=== PATIENT | female | born 1950 | race Two or more races ===

== ENCOUNTER → 2016-12-30 | Outpatient (CLI) | payer OTHER | LOC: BMCIMAGING 09:26 | DX: Z12.31 Encounter for screening mammogram for malignant neoplasm of breast (principal) | CPT/HCPCS: G0202 ==

== ENCOUNTER → 2017-02-09 | Outpatient (CLI) | payer OTHER | LOC: BMCIMAGING 10:15 | PROVIDERS: ATTEND Internal Medicine | DX: Z13.820 Encounter for screening for osteoporosis (principal); M85.80 Other specified disorders of bone density and structure, unspecified site ==

== ENCOUNTER 2017-09-24 20:59 | Observation (INO) | payer OTHER ==
--- NOTE | 2017-09-24 21:11 | CPEKG ---
Heart Rate: 88 RR Interval: 682 P-R Interval: 172 QRSD Interval: 80 QT Interval: 360 QTC Interval: 436 P Liberty: 54 QRS Liberty: 4 T Wave Liberty: 50 EKG Severity - BORDERLINE ECG - EKG Impression: SINUS RHYTHM EKG Impression: CONSIDER ANTERIOR INFARCT Electronically Signed By: Nabil Chavez 25-Sep-2017 06:37:56
[2017-09-24 21:33] LABS: PLATELET COUNT 167 10^3/uL (150-400)
[2017-09-24] MEDS ORDERED: MAG HYDROX/AL HYDROX/SIMETH 30 ML UDCUP PO ONE (21:49)
--- NOTE | 2017-09-24 21:53 | EDPHY ---
H & P Stated Complaint: Midsternium pain, radiates to right jaw - Personal History Current Tetanus Diphtheria and Acellular Pertussis (TDAP): Yes Tetanus Vaccine Date: <10 - Medical/Surgical History Hx Asthma: No Hx Chronic Respiratory Disease: No Hx Diabetes: No Hx Cardiac Disease: No Hx Renal Disease: No Hx Cirrhosis: No Hx Alcoholism: No Hx HIV/AIDS: No Hx Splenectomy or Spleen Trauma: No Other PMH: kidney stones, bilat hip replacements, tonsils, C sections x 2. Arthroscopic knee surgery x2 - Social History Smoking Status: Never smoked Time Seen by Provider: 09/24/17 21:11 Constitutional: Initial Vital Signs Temperature (C) 36.7 C 09/24/17 21:06 Heart Rate 92 09/24/17 21:06 Respiratory Rate 20 09/24/17 21:06 Blood Pressure 186/95 H 09/24/17 21:06 O2 Sat (%) 96 09/24/17 21:06 O2 Delivery Mode Room Air Allergies/Adverse Reactions: erythromycin base [Erythromycin Base] Allergy (Severe, Verified 09/24/17 21:02) aspirin [Aspirin] Allergy (Unknown, Verified 09/24/17 21:02) codeine [Codeine] Allergy (Unknown, Verified 09/24/17 21:02) iodine Allergy (Unknown, Verified 09/24/17 21:02) morphine [Morphine] Allergy (Unknown, Verified 09/24/17 21:02) Penicillins Allergy (Unknown, Verified 09/24/17 21:02) Sulfa (Sulfonamide Antibiotics) Allergy (Unknown, Verified 09/24/17 21:02) NSAIDS Allergy (Unknown, Uncoded 09/17/16 19:47) Home Medications: Medication Instructions Recorded Aspirin [Aspirin 81mg (*)] 40.5 mg PO DAILY PRN 09/25/17 Herbals/Supplements -Info Only 1 ea PO DAILY 09/25/17 Medical Decision Making - Diagnostics Imaging: I viewed and interpreted images myself ED Course/Re-evaluation: CHIEF COMPLAINT: Chest pain HISTORY OF PRESENT ILLNESS: The patient is a 67 y/o female arriving with her complaining of sudden onset, intermittent midsternal chest pain radiating to her back that began this evening while sitting after dinner. She initially describes her pain as "heartburn," but denies associated belching, bad taste in her mouth, or burning sensation extending vertically along her esophagus. She ate sauerkraut at dinner. She tells me she returned from [place] at the beginning of August with a viral illness. Her cough and fever resolved , but over the past few weeks she began to notice intermittent exertional dyspnea and tachycardia going up stairs and walking on the treadmill that improve with rest. Two weeks ago she woke in the middle of the night with the same chest pain and it resolved spontaneously. When her pain is present, she describes chest pain that is "sucker punching me in the back." She had a Holter monitor study in the last year and a nuclear study over 5 years ago. She has no personal or family history of cardiac disease. No hyperlipidemia, hypertension, diabetes. REVIEW OF SYSTEMS: A 10 point review of systems was performed and is negative with the exception of the elements mentioned in the history of present illness. PHYSICAL EXAM: HR, BP, O2 Sat, RR. Temp noted General Appearance: Alert, well hydrated, appropriate, and non-toxic appearing. Head: Atraumatic without scalp tenderness or obvious injury Eyes: Pupils equal, round, reactive to light and accommodation, EOMI, no trauma , no injection. Nose: Atraumatic, no rhinorrhea, clear. Throat: Mucus membranes moist. Neck: Supple, non-tender, no lymphadenopathy. Respiratory: No retractions, no distress, no wheezes, and no accessory muscle use. Lungs are clear to auscultation bilaterally. Chest: Tenderness at sternal notch. Cardiovascular: Regular rate and rhythm, no murmurs, rubs, or gallops. Good capillary refill all extremities. Gastrointestinal: Abdomen is soft, non-tender, non-distended, no masses, no rebound, no guarding, no peritoneal signs. Musculoskeletal: Normal active ROM of all extremities, atraumatic. Neurological: Alert, appropriate, and interactive. The patient has non-focal cranial nerves, motor, sensory, and cerebellar exam. Skin: No rashes, good turgor, no nodules on palpation. 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 Nonsmoker. No alcohol use. PCP: Dr. Flores. Sample Sewer: was Dr. Anthony. DIAGNOSTICS/PROCEDURES/CRITICAL CARE TIME: The 12 lead EKG was interpreted by myself. Sinus mechanism. See hard copy and/ or "tracemaster" electronic copy for interpretation. DIFFERENTIAL DIAGNOSIS: The differential diagnosis for the patient's chest pain included but was not limited to GERD, esophageal spasm, myocardial ischemia, pulmonary embolus, chest wall pain, pleural inflammation, and pulmonary infectious causes. MEDICAL DECISION MAKING: This is a 67 y/o female who presents with a few-hour history of "midsternal" chest pain and a few week history of exertional dyspnea. Her pain is reproducible on palpation around her sternal notch. Her exam is otherwise normal. Plan for IV, labs, EKG, and symptomatic management. I offered multiple treatment options for her symptoms including GI cocktail, Mylanta, fluids, albuterol inhaler for shortness of breath. She refused every option and asked for her IV to be removed. We will run the labs we already have. EKG shows sinus mechanism. Patient is now requesting Maalox. I've ordered this for her. Troponin negative, which is likely sensitive due to several weeks of symptoms. D -dimer elevated at 0.63. Reassessed patient and discussed indication for chest CTA including exertional dyspnea following flight from [place]. She agrees to imaging. Her pain continues to be intermittent and relatively unchanged after Maalox. Chest x-ray cancelled. Patient will be signed out to Dr. Chavez pending CTA results. (Jose A Pruitt) CT scan angiogram of the chest shows no pulmonary embolism. No pneumonia. There is scarring in the lingula. Otherwise no evidence of aortic dissection and pulmonary embolism or large cardiac effusion. This was called to me by Dr. Kulkarni. 2320: Spent extensive time discussed results with this patient. Went over CT results, EKG, blood work and troponin. Given that I do not have an explanation for her tachycardia, dyspnea on exertion and chest discomfort with jaw discomfort I recommend that she stays in the hospital overnight for further serial enzymes serial EKGs and cardiac evaluation and rule out. She is agreeable for this plan. I spent a great deal of time with her about this. I will consult the hospitalist for admission for further cardiac evaluation. Her only risk factor is her age. She does not smoke she is not obese. She does report to me she had a stress test treadmill approximately 6 years ago that was normal. (Nabil Chavez) - Data Points Laboratory Results: Laboratory Results 09/24/17 21:10 09/24/17 21:10 Medications Given: Discontinued Medications Al Hydroxide/Mg Hydroxide (Maalox Susp) 30 ml PO ONCE ONE Stop: 09/24/17 21:50 Last Admin: 09/24/17 21:53 Dose: 30 ml Diphenhydramine HCl (Benadryl Injection) 6.25 mg IVP EDNOW ONE Stop: 09/24/17 22:37 Last Admin: 09/24/17 22:41 Dose: 6.25 mg Enoxaparin Sodium (Lovenox) 40 mg SC DAILY BLADIMIR Stop: 03/24/18 08:59 Last Admin: 09/25/17 08:12 Dose: Not Given Departure - Departure Disposition: [facility] Inpatient Acute Clinical Impression: Exertional dyspnea Chest pain Qualifiers: Chest pain type: other chest pain Qualified Code(s): R07.89 - Other chest pain Condition: Good Report Scribed for: Jose A Pruitt Report Scribed by: Zara Rose Date of Report: 09/24/17 Time of Report: 21:53
[2017-09-24] MEDS ORDERED: IOPAMIDOL (ISOVUE 370) 100 ML BTL IV ONE (22:46)
[2017-09-24] MEDS ORDERED: ONDANSETRON DISINTEGRATING 4 MG TAB PO PRN (23:27)
[2017-09-24] MEDS ORDERED: ONDANSETRON 4 MG/2 ML VIAL IVP PRN (23:27)
[2017-09-24] MEDS ORDERED: ACETAMINOPHEN 325 MG TAB PO PRN (23:27)
--- NOTE | 2017-09-25 00:36 | PDGENHP ---
History and Physical - Chief Complaint Chest pain - History of Present Illness 67 yo F w/ no significant PMHx presents with MOSLEY and chest pain. Patient explains that she had a viral URI in July. Since returning from her trip to [place] she continued to experience cough (now resolved) and mild dyspnea on exertion. Her MOSLEY has persisted, which she finds very distressin. Then, on the night of admission, patient had an episode of severe, central chest discomfort with radiation to the back and R jaw. She has never had similar symptoms. Her pain abated after arrival to the ED with aid of a GI cocktail. She states that she is usually in excellent health and exercises regularly. In the ED work-up thus far has been relatively unremarkable including a normal CTA chest. She is being admitted for chest pain rule out and risk stratification. History Information - Allergies/Home Medication List Allergies/Adverse Reactions: erythromycin base [Erythromycin Base] Allergy (Severe, Verified 09/24/17 21:02) aspirin [Aspirin] Allergy (Unknown, Verified 09/24/17 21:02) codeine [Codeine] Allergy (Unknown, Verified 09/24/17 21:02) iodine Allergy (Unknown, Verified 09/24/17 21:02) morphine [Morphine] Allergy (Unknown, Verified 09/24/17 21:02) Penicillins Allergy (Unknown, Verified 09/24/17 21:02) Sulfa (Sulfonamide Antibiotics) Allergy (Unknown, Verified 09/24/17 21:02) NSAIDS Allergy (Unknown, Uncoded 09/17/16 19:47) Home Medications: NK [No Known Home Meds] 04/05/16 [Last Taken Unknown] I have personally reviewed and updated: family history, medical history - Past Medical History no pertinent PMH - Surgical History Reports: no pertinent surgical hx - Family History Positive for: cancer, CAD - Social History Smoking Status: Never smoked Review of Systems Review of Systems: ROS: 10pt was reviewed & negative except for what was stated in HPI & below Physical Exam Physical Exam: Temp Pulse Resp BP Pulse Ox 36.7 C 67 20 146/82 H 96 09/24/17 21:06 09/25/17 00:08 09/25/17 00:08 09/25/17 00:08 09/25/17 00:08 Constitutional: no apparent distress, not in pain Eyes: PERRL, EOMI Ears, Nose, Mouth, Throat: moist mucous membranes, no oral mucosal ulcers Cardiovascular: regular rate and rhythym, no murmur, rub, or gallop Respiratory: no respiratory distress, clear to auscultation Gastrointestinal: normoactive bowel sounds, soft, non-tender abdomen Skin: warm, normal color Musculoskeletal: full muscle strength, no muscle tenderness Neurologic: AAOx3, CN II-XII Intact Psychiatric: interacting appropriately, not anxious Lab Data & Imaging Review 09/24/17 21:10 09/24/17 21:10 WBC 7.03 10^3/uL (3.80-9.50) 09/24/17 21:10 RBC 4.50 10^6/uL (4.18-5.33) 09/24/17 21:10 Hgb 13.9 g/dL (12.6-16.3) 09/24/17 21:10 Hct 41.2 % (38.0-47.0) 09/24/17 21:10 MCV 91.6 fL (81.5-99.8) 09/24/17 21:10 MCH 30.9 pg (27.9-34.1) 09/24/17 21:10 MCHC 33.7 g/dL (32.4-36.7) 09/24/17 21:10 RDW 13.0 % (11.5-15.2) 09/24/17 21:10 Plt Count 167 10^3/uL (150-400) 09/24/17 21:10 MPV 10.7 fL (8.7-11.7) 09/24/17 21:10 Neut % (Auto) 45.5 % (39.3-74.2) 09/24/17 21:10 Lymph % (Auto) 44.0 % (15.0-45.0) 09/24/17 21:10 Dickey % (Auto) 8.7 % (4.5-13.0) 09/24/17 21:10 Eos % (Auto) 1.6 % (0.6-7.6) 09/24/17 21:10 Baso % (Auto) 0.1 % (0.3-1.7) L 09/24/17 21:10 Nucleat RBC Rel Count 0.0 % (0.0-0.2) 09/24/17 21:10 Absolute Neuts (auto) 3.20 10^3/uL (1.70-6.50) 09/24/17 21:10 Absolute Lymphs (auto) 3.09 10^3/uL (1.00-3.00) H 09/24/17 21:10 Absolute Monos (auto) 0.61 10^3/uL (0.30-0.80) 09/24/17 21:10 Absolute Eos (auto) 0.11 10^3/uL (0.03-0.40) 09/24/17 21:10 Absolute Basos (auto) 0.01 10^3/uL (0.02-0.10) L 09/24/17 21:10 Absolute Nucleated RBC 0.00 10^3/uL (0-0.01) 09/24/17 21:10 Immature Gran % 0.1 % (0.0-1.1) 09/24/17 21:10 Immature Gran # 0.01 10^3/uL (0.00-0.10) 09/24/17 21:10 D-Dimer 0.63 ug/mLFEU (0.00-0.50) H 09/24/17 21:10 Sodium 144 mEq/L (134-144) 09/24/17 21:10 Potassium 3.7 mEq/L (3.5-5.2) 09/24/17 21:10 Chloride 101 mEq/L (97-110) 09/24/17 21:10 Carbon Dioxide 28 mEq/l (22-31) 09/24/17 21:10 Anion Gap 15 mEq/L (8-16) 09/24/17 21:10 BUN 19 mg/dL (7-23) 09/24/17 21:10 Creatinine 0.8 mg/dL (0.6-1.0) 09/24/17 21:10 Estimated GFR > 60 09/24/17 21:10 Glucose 107 mg/dL (70-100) H 09/24/17 21:10 Calcium 9.9 mg/dL (8.5-10.4) 09/24/17 21:10 Troponin I < 0.012 ng/mL (0.000-0.034) 09/24/17 21:10 NT-Pro-B Natriuret Pep 58 pg/mL (0-125) 09/24/17 21:10 Imaging Review: Imaging Impressions Chest/Thorax CTA 09/24/17 22:17 Impression: 1. No evidence of thrombopulmonary embolic disease. 2. Mild diskoid atelectasis or scarring right middle lobe and lingula. Results called and discussed with Dr. Nabil Chavez at 09/24/2017 23:13. Visualized and Interpreted EKG results: Yes EKG Interpretation: Positive for: normal sinsus rhythm Assessment & Plan Assessment: 67 yo F w/ no significant PMHx presents with sub-acute MOSLEY and episode of chest pain on night admission. Plan: 1. Chest pain - Described as central, severe, with radiation to R jaw. Objective data in the ED negative for acute ischemia with negative ECG and troponin. Noting pain was relieved with GI cocktail, most likely GI etiology. However, noting age, patient concern, and ongoing MOSLEY, reasonable to perform inpatient risk stratification. - Admit for observation to PCU - Monitor on telemetry, trend cardiac enzymes - Treadmill stress test ordered 2. MOSLEY - I suspect this is related to viral bronchitis that patient is now recovering from. However, will evaluate for cardiac etiologies as above. I do not feel a TTE is necessary at this point noting normal VS, normal heart size, and euvolemic physical exam. Diet - NPO for cardiac risk stratification Code - Full Ppx - LMWH Dispo - Admit to PCU under observation status
[2017-09-25 04:41] LABS: PLATELET COUNT 146 10^3/uL (150-400)
[2017-09-25 08:06] VITALS: BP 134/73; PULSE 66; RESP 16; TEMP 97.7; O2SAT 95
[2017-09-25] MEDS ORDERED: ENOXAPARIN 40 MG/0.4 ML SYR SC SCH (09:00)
--- NOTE | 2017-09-25 11:32 | CPR ---
[f rep st] NONINVASIVE CARDIAC PROCEDURE REPORT INDICATION: Atypical chest pain. PROCEDURE: The patient was prepared for an exercise EKG test. The patient's baseline blood pressure was 118/78, pulse of 72, normal sinus rhythm. The patient exercised for 10 minutes. Appropriate in crease in blood pressure and heart rate. Heart rate went up to 154 beats per minute, reaching the ma x heart rate. No ST changes were noted. No symptoms of chest pain noted. Occasional PVCs during ex ercise, which resolved quickly with recovery. CONCLUSION: Mcnair treadmill score of 10. Negative exercise EKG for ischemia. /[id number]/MODL
--- NOTE | 2017-09-25 12:53 | ASDISCHSUM ---
Discharge Information Plan Status:Home with No Needs Medically Cleared to Leave:09/24/2017 Discharge Date:09/25/2017 12:49 PM CM D/C Disposition:Home, Routine, Self-Care ADT D/C Disposition:Home, Routine, Self-Care Projected Discharge Date:09/25/2017 12:49 PM Transportation at D/C:Family Discharge Delay Reason: Follow-Up Date:09/25/2017 12:49 PM Discharge Slot:2 - 12:01 pm - 18:00 pm Final Diagnosis:Chest pain, dyspnea on exertion, exercise stress test negative Placement Information Patient Contact Information Contact Name:ANAI Relationship: Address:[address] Home Phone: City:[place] Alternate Phone: State/Zip Code:[place] [address] Email: Financial Information Financial Class:HMO and PPO Plans Primary Plan Desc:[facility] Primary Plan Number:[id number] Secondary Plan Desc: Secondary Plan Number: Assessment Information [facility] CM Progress Note CM Note CM Note Notes: Pt admitted for chest pain and dyspnea on exertion. Per MD notes, s/p negative exercise stress test. Pt to discharge home independently w/ family support and no identified needs. Pt to follow up as directed. No IM signed, admission <24 hrs and not applicable. CM avail for any further issues or concerns. Current Discharge Plan: Home independently Date Signed: 09/25/2017 12:53 PM Electronically Signed By:Lata Cardona RN Intervention Information
--- NOTE | 2017-09-25 15:23 | PDDCSUM ---
Discharge Summary Discharge Summary: DISCHARGE SUMMARY FOLLOW-UP ITEMS: Reassess any recurrence of GERD symptoms Reassess whether her pulmonary capacity has completely normalized DATE OF ADMISSION: 09/24/2017 DATE OF DISCHARGE: 09/25/2017 DISCHARGE DIAGNOSES: 1. Acute chest pain 2. Suspected GERD 3. Suspected post viral bronchitis 4. Atelectasis CONSULTATIONS: None PROCEDURES / IMAGING: Exercise stress test demonstrating no inducible ischemia, CT angiogram demonstrating no pulmonary embolism CHIEF COMPLAINT: Acute chest pain SUBJECTIVE: Patient is feeling well at time discharge, she is no longer having any acute chest pain, she does report some ongoing subjective reduced pulmonary capacity with exertion PHYSICAL EXAM ON DISCHARGE: Systolic blood pressure 120-160, heart rate 70, afebrile overnight, satting on room air, alert awake oriented x3, lungs are clear to auscultation bilaterally without any crackles wheezes, heart rhythm is regular with regular rate LABS ON DISCHARGE: D-dimer negative when adjusted for age, troponin negative x2, creatinine 0.7, potassium 3.9, white blood count 6800, hemoglobin 12.1 HOSPITAL COURSE BY PROBLEM: The patient presented with acute chest pain in the setting of recent subjective decline in pulmonary capacity with pulmonary discomfort on physical exertion. The patient was ruled out for acute coronary syndrome with negative troponin x2 , no ischemic changes on EKG. She was ruled out for obstructive coronary disease with a normal exercise EKG stress test. She was ruled out for pulmonary embolism with a normal CT angiogram. I suspect that the acute chest discomfort experienced by the patient precipitating this hospitalization was GERD, as the patient had recently eaten particularly spicy and caustic foods. I recommended that the patient have as needed Tums or Maalox at home if she experiences any recurrence of the symptoms, and that she avoid these types of foods in the future. The patient absolutely does not want to initiate an H2 ryanne or PPI, and I have recommend that she continue this conversation with her primary care provider. I believe that the patient's recent subjective reduction and pulmonary capacity is a separate and distinct process, most likely postviral bronchitis which has lingered approximately 6 weeks from with the patient experienced a likely URI. The patient demonstrates no red flag findings with normal oxygen saturations on room air, no substantial complications with an exercise stress test, and no evidence of focal airspace disease or pulmonary fibrosis on CT imaging. That being said, the patient does have some scarring in the right middle lobe as well as atelectasis, and these could be a findings associated with her past illness, as well as her reluctance to take deep breaths for fear of experiencing chest discomfort. I have advised the patient that she could take nonsteroidal anti-inflammatory medications to treat any element of ongoing pleuritis, but the patient is adamantly against taking NSAIDs. The patient would prefer to use naturopathic methods for anti- inflammatory intervention (tumeric), and that seems appropriate, given the patient's beliefs. It should also be noted that the patient does report good exercise tolerance at the present time, and I do not believe that she has any indication for immediate pulmonary function testing or echocardiogram. That being said, I also recommend the patient continue this conversation with her primary care provider and if her symptoms do not begin to resolve over the next couple weeks , that her primary care provider consider more advanced workup with these modalities. Although the patient does not want to bother her PCP with these concerns, I counseled the patient that that is the most appropriate setting to address these issues and it provides the best opportunity for continuity of care and an ongoing diagnostic work-up, rather than episodic evaluations by acute care providers. DISCHARGE MEDICATIONS: Please see official discharge medication reconciliation sheet in chart , continue home medications with the addition of as needed Maalox and Tums. DISCHARGE INSTRUCTIONS: Please follow up with primary care provider in the next couple weeks.
== END 2017-09-25 12:49 | disposition home or self-care (01) ==
LOC: F2W 09-25 00:41
PROVIDERS: ADMIT Student in an Organized Health Care Education/Training Program; ATTEND Internal Medicine
DX: R07.9 Chest pain, unspecified (principal); R06.09 Other forms of dyspnea; J98.11 Atelectasis; R00.0 Tachycardia, unspecified; Z87.442 Personal history of urinary calculi; Z82.49 Family history of ischemic heart disease and other diseases of the circulatory system; Z96.643 Presence of artificial hip joint, bilateral; Z88.0 Allergy status to penicillin; Z88.2 Allergy status to sulfonamides
CPT/HCPCS: 71275; 93005; 93017; G0378; 96374; J1200; Q9967

== ENCOUNTER 2017-10-23 12:48 | Emergency (ER) | payer OTHER ==
[2017-10-23 12:54] VITALS: TEMP 98.2
--- NOTE | 2017-10-23 13:19 | EDPHY ---
H & P Stated Complaint: allergic rxn since 1629 yesterday Time Seen by Provider: 10/23/17 12:57 HPI/ROS: Chief Complaint: Allergic reaction HPI: 67-year-old woman with a history of multiple allergies has been having hives for the last couple of days. Hives worsening yesterday. This morning she started having some discomfort in her throat. No real shortness of breath or wheezing. She took 12.5 mg of Benadryl today. Patient states that she only takes this does because she is very sensitive to medications. She states that her throat scratching his seems to be improving as do the hives on her abdomen and legs. No fevers or chills. No cough. No nausea or vomiting. No lightheadedness or fainting. She does state that she started using a new boil at home. The ROS: 10 point Review of Systems is negative except as noted in the HPI. PMH: Multiple allergies Social History: No smoking, no alcohol, no recreational drug use Family History: non-contributory Physical Exam: Gen: Awake, Alert, No Distress HEENT: Nose: no rhinorrhea Eyes: PERRLA, EOMI Mouth: Moist mucosa oropharynx is normal, no angioedema, Neck: Supple, no JVD, no masses, no stridor Chest: nontender, lungs clear to auscultation Heart: S1, S2 normal, no murmur Abd: Soft, non-tender, no guarding Back: no CVA tenderness, no midline tenderness Ext: no edema, non-tender Skin: Mild generalized urticaria on her abdomen is upper and lower extremities Neuro: CN II-XII intact, Sensation grossly intact, Strength 5/5 in bilateral upper and lower extremities - Personal History Tetanus Vaccine Date: <10 - Medical/Surgical History Hx Asthma: No Hx Chronic Respiratory Disease: No Hx Diabetes: No Hx Cardiac Disease: No Hx Renal Disease: No Hx Cirrhosis: No Hx Alcoholism: No Hx HIV/AIDS: No Hx Splenectomy or Spleen Trauma: No Other PMH: kidney stones, bilat hip replacements, tonsils, C sections x 2. Arthroscopic knee surgery x2 - Social History Smoking Status: Never smoked Constitutional: Initial Vital Signs Temperature (C) 36.8 C 10/23/17 12:50 Heart Rate 110 H 10/23/17 12:50 Respiratory Rate 16 10/23/17 12:50 Blood Pressure 166/107 H 10/23/17 12:50 O2 Sat (%) 94 10/23/17 12:50 O2 Delivery Mode Room Air Allergies/Adverse Reactions: erythromycin base [Erythromycin Base] Allergy (Severe, Verified 09/24/17 21:02) aspirin [Aspirin] Allergy (Unknown, Verified 09/24/17 21:02) codeine [Codeine] Allergy (Unknown, Verified 09/24/17 21:02) iodine Allergy (Unknown, Verified 09/24/17 21:02) morphine [Morphine] Allergy (Unknown, Verified 09/24/17 21:02) Penicillins Allergy (Unknown, Verified 09/24/17 21:02) Sulfa (Sulfonamide Antibiotics) Allergy (Unknown, Verified 09/24/17 21:02) NSAIDS Allergy (Unknown, Uncoded 09/17/16 19:47) Home Medications: Medication Instructions Recorded Aspirin [Aspirin 81mg (*)] 40.5 mg PO DAILY PRN 09/25/17 Herbals/Supplements -Info Only 1 ea PO DAILY 09/25/17 EPINEPHRINE [EPIPEN] 0.3 mg IM ONCE #2 syr 10/23/17 Medical Decision Making ED Course/Re-evaluation: Patient is improved after 12 and half of Benadryl. Rash is resolving. She states her throat is better. I had never noted any angioedema in her throat. She had no stridor. Her oxygen saturations were good. Her vital signs were good with a little bit of hypertension. She does not want taking steroids. She does not want any epinephrine. I will write her for an EpiPen if her symptoms should worsen. [facility] She will return for any concerns. - Data Points Medications Given: Discontinued Medications Diphenhydramine HCl (Benadryl Injection) 12.5 mg IVP EDNOW ONE Stop: 10/23/17 12:58 Last Admin: 10/23/17 13:01 Dose: 12.5 mg Departure - Departure Disposition: Home, Routine, Self-Care Clinical Impression: Allergic reaction Condition: Good Instructions: Allergies (ED) Additional Instructions: Take 12.5 mg of Benadryl every 4 hr for the next 48 hr. Follow up with primary care physician tomorrow and arrange for follow up with an bag liner. Return to the emergency depart for increasing shortness of breath, worsening rash, worsening itching, or any other concerns. Referrals: Edyta Flores MD [Primary Care Provider] - As per Instructions Prescriptions: EPINEPHRINE [EPIPEN] 0.3 mg IM ONCE #2 syr
[2017-10-23 14:29] VITALS: BP 122/76; PULSE 71; RESP 18; O2SAT 98
== END 2017-10-23 14:31 | disposition home or self-care (01) ==
DX: T78.40XA Allergy, unspecified, initial encounter (principal); Z79.82 Long term (current) use of aspirin
CPT/HCPCS: 96374; J1200

== ENCOUNTER 2017-10-24 05:29 | Emergency (ER) | payer OTHER ==
[2017-10-24 05:35] VITALS: O2SAT 98
[2017-10-24] MEDS ORDERED: FAMOTIDINE 20 MG TAB PO ONE (06:40)
--- NOTE | 2017-10-24 07:20 | EDPHY ---
H & P Stated Complaint: HIVES/SWELLING Time Seen by Provider: 10/24/17 05:57 HPI/ROS: HPI The patient presents with increased itchy rash which has been present for the last 2 days. It started slowly and has gotten progressively worse. She did have some sensations that her throat was closing earlier today. She was in the emergency department for this. She has been taking Benadryl 12.5 mg every 3 hr. She has declined prednisone and other treatments. However, she is concerned now that the rash has gotten worse. It is unclear what her reaction is 2 at this point. She is not on any new medications except for fish oil pills. She currently denies any vomiting, shortness of breath, wheezing. REVIEW OF SYSTEMS Constitutional: No fever, no chills. Eyes: No discharge. ENT: No sore throat. Cardiovascular: No chest pain, no palpitations. Respiratory: No cough, no shortness of breath. Gastrointestinal: No abdominal pain, no vomiting. Genitourinary: No hematuria. Musculoskeletal: No back pain. Skin: See HPI Neurological: No headache. PMHx: History of kidney stones Soc Hx: Lives at home with her PHYSICAL General Appearance: Alert, no distress Eyes: Pupils equal and round no pallor or injection ENT, Mouth: Mucous membranes moist, posterior pharynx is mildly edematous without any erythema, uvula is midline Respiratory: There are no retractions, lungs are clear to auscultation Cardiovascular: Regular rate and rhythm Gastrointestinal: Abdomen is soft and non-tender, no masses, bowel sounds normal Neurological: A&O, moves all extremities Skin: Warm and dry, urticarial rash throughout arms, legs, abdomen and back Musculoskeletal: Neck is supple non tender Extremities: symmetrical, full range of motion Psychiatric: Patient is oriented X 3, there is no agitation Source: Patient Exam Limitations: No limitations - Personal History Current Tetanus/Diphtheria Vaccine: Yes Tetanus Vaccine Date: <10 - Medical/Surgical History Hx Asthma: No Hx Chronic Respiratory Disease: No Hx Diabetes: No Hx Cardiac Disease: No Hx Renal Disease: No Hx Cirrhosis: No Hx Alcoholism: No Hx HIV/AIDS: No Hx Splenectomy or Spleen Trauma: No Other PMH: kidney stones, bilat hip replacements, tonsils, C sections x 2. Arthroscopic knee surgery x2 - Social History Smoking Status: Never smoked Constitutional: Initial Vital Signs Temperature (C) 37.1 C 10/24/17 05:33 Heart Rate 100 10/24/17 05:33 Respiratory Rate 18 10/24/17 05:33 Blood Pressure 134/97 H 10/24/17 05:33 O2 Sat (%) 98 10/24/17 05:33 O2 Delivery Mode Room Air Allergies/Adverse Reactions: erythromycin base [Erythromycin Base] Allergy (Severe, Verified 09/24/17 21:02) aspirin [Aspirin] Allergy (Unknown, Verified 09/24/17 21:02) codeine [Codeine] Allergy (Unknown, Verified 09/24/17 21:02) iodine Allergy (Unknown, Verified 09/24/17 21:02) morphine [Morphine] Allergy (Unknown, Verified 09/24/17 21:02) Penicillins Allergy (Unknown, Verified 09/24/17 21:02) Sulfa (Sulfonamide Antibiotics) Allergy (Unknown, Verified 09/24/17 21:02) NSAIDS Allergy (Unknown, Uncoded 09/17/16 19:47) Home Medications: Medication Instructions Recorded Aspirin [Aspirin 81mg (*)] 40.5 mg PO DAILY PRN 09/25/17 Herbals/Supplements -Info Only 1 ea PO DAILY 09/25/17 EPINEPHRINE [EPIPEN] 0.3 mg IM ONCE #2 syr 10/23/17 Famotidine [Pepcid 20 MG (*)] 20 mg PO BID #30 tab 10/24/17 predniSONE [Prednisone] 10 mg PO DAILY 4 Days tablet 10/24/17 Medical Decision Making Differential Diagnosis: 67-year-old female with diffuse urticaria, worse from when she was seen earlier today. She does not have any signs of anaphylaxis. The cause of her urticaria is unclear. She does complain of throat symptoms, however her posterior pharynx appears normal. She is taking Benadryl. She is somewhat concerned about medications and their side effects. She says she is particularly sensitive to medications. She agrees for Pepcid and low-dose prednisone for the next several days. I will give her follow-up with an ux visual designer. She has gotten a prescription for EpiPen already. - Data Points Medications Given: Discontinued Medications Famotidine (Pepcid) 20 mg PO EDNOW ONE Stop: 10/24/17 06:41 Last Admin: 10/24/17 06:48 Dose: 20 mg Departure - Departure Disposition: Home, Routine, Self-Care Clinical Impression: Urticaria Condition: Good Instructions: Urticaria (ED) Additional Instructions: Please return to the emergency room if your worse in any way. You should continue to take the Benadryl as your taking it. Referrals: Edyta Flores MD [Primary Care Provider] - As per Instructions Kathryn Ramirez MD [[facility] [place] - As per Instructions Prescriptions: Famotidine [Pepcid 20 MG (*)] 20 mg PO BID #30 tab predniSONE [Prednisone] 10 mg PO DAILY 4 Days tablet
[2017-10-24 07:26] VITALS: BP 121/84; PULSE 74; RESP 14; TEMP 97.9
== END 2017-10-24 07:28 | disposition home or self-care (01) ==
DX: L50.9 Urticaria, unspecified (principal); Z79.82 Long term (current) use of aspirin

== ENCOUNTER 2018-12-06 13:24 | Observation (INO) | payer OTHER ==
--- NOTE | 2018-12-06 14:49 | EDPHY ---
H & P Stated Complaint: SOB and irregular heart rate for 1 week, getting worse. Time Seen by Provider: 12/06/18 14:25 HPI/ROS: CHIEF COMPLAINT: Irregular heartbeat, shortness of breath HISTORY OF PRESENT ILLNESS: 68-year-old female presents with irregular heartbeat and shortness of breath. Onset of occasional irregular heartbeat 2 months ago. Over the last week, the irregularity has increased in frequency and now occurs every few seconds. Associated with a one-week history of exertional shortness of breath and chest pressure. The chest pressure is moderate and resolves with rest. Asymptomatic now. No prior history cardiopulmonary disease. REVIEW OF SYSTEMS: complete 10 point ROS reviewed and is negative except for the noted elements in the HPI - Personal History Current Tetanus Diphtheria and Acellular Pertussis (TDAP): Yes Tetanus Vaccine Date: <10 - Medical/Surgical History Hx Asthma: No Hx Chronic Respiratory Disease: No Hx Diabetes: No Hx Cardiac Disease: No Hx Renal Disease: No Hx Cirrhosis: No Hx Alcoholism: No Hx HIV/AIDS: No Hx Splenectomy or Spleen Trauma: No Other PMH: kidney stones, bilat hip replacements, tonsils, C sections x 2. Arthroscopic knee surgery x2 - Social History Smoking Status: Never smoked Alcohol Use: Sober Additional Social History: - Physical Exam Exam: General Appearance: Alert, pleasant Eyes: Pupils equal and round, no conjunctival pallor or injection ENT, Mouth: Mucous membranes moist Neck: Normal inspection Respiratory: Lungs are clear to auscultation Cardiovascular: Irregular rhythm Gastrointestinal: Abdomen is soft and nontender Neurological: A&O, nonfocal, normal gait Skin: Warm and dry Extremities: Normal inspection, no swelling Psychiatric: Anxious Constitutional: Initial Vital Signs Temperature (C) 37.2 C 12/06/18 13:26 Heart Rate 76 12/06/18 13:26 Respiratory Rate 18 12/06/18 13:26 Blood Pressure 178/91 H 12/06/18 13:26 O2 Sat (%) 96 12/06/18 13:26 O2 Delivery Mode Room Air Allergies/Adverse Reactions: erythromycin base [Erythromycin Base] Allergy (Severe, Verified 09/24/17 21:02) aspirin [Aspirin] Allergy (Unknown, Verified 09/24/17 21:02) codeine [Codeine] Allergy (Unknown, Verified 09/24/17 21:02) iodine Allergy (Unknown, Verified 09/24/17 21:02) morphine [Morphine] Allergy (Unknown, Verified 09/24/17 21:02) Penicillins Allergy (Unknown, Verified 09/24/17 21:02) Sulfa (Sulfonamide Antibiotics) Allergy (Unknown, Verified 09/24/17 21:02) NSAIDS (Non-Steroidal Anti-Inflamma Allergy (Verified 12/07/18 08:30) Unknown Home Medications: Medication Instructions Recorded NK [No Known Home Meds] 12/06/18 Medical Decision Making - Diagnostics EKG Interpretation: EKG interpreted by me reveals normal sinus rhythm, rate 81, multiple PVCs, poor R-wave progression. Interpretation: Abnormal EKG Imaging Results: CXR: NAD Imaging: I viewed and interpreted images myself ED Course/Re-evaluation: This patient presents with chest pressure and shortness of breath. Stat EKG reveals multiple PVCs and poor R-wave progression, no acute ischemic changes or significant dysrhythmia. trop normal. Aspirin 324 mg orally given. Associated with significant overlying anxiety, patient declines IV Ativan. Sx may be secondary to PVC's with associated anxiety, though concerning for angina/ ACS. Will admit for further cardiac eval. Doubt alternative etiology. No RF for PE, PERC score 1 for age, imaging not indicated. The hospitalist service was consulted for admission. Differential Diagnosis: Differential diagnosis includes though it is not limited to pneumonia, pneumothorax, pulmonary embolism, aortic dissection, pericarditis, acute coronary syndrome. - Data Points Laboratory Results: Laboratory Results 12/06/18 14:30 12/06/18 14:30 Medications Given: Discontinued Medications Potassium Chloride (Klor Packets) 40 meq PO ONCE ONE Stop: 12/06/18 17:53 Last Admin: 12/06/18 21:43 Dose: Not Given Potassium Chloride (Klor Packets) 40 meq PO ONCE ONE Stop: 12/06/18 20:46 Last Admin: 12/06/18 21:58 Dose: Not Given Potassium Chloride (Klor-Con) 10 - 40 meq PO ONCE ONE PRN Reason: Protocol Stop: 12/06/18 23:33 Last Admin: 12/06/18 23:53 Dose: Not Given Potassium Chloride (Klor-Con) 10 meq PO ONCE ONE PRN Reason: Protocol Stop: 12/07/18 08:41 Last Admin: 12/07/18 09:12 Dose: Not Given Point of Care Test Results: Chemistry 12/06/18 14:38 POC Troponin I 0.00 ng/mL ng/mL (0.00-0.08) Departure - Departure Disposition: [facility] Acute Clinical Impression: Exertional dyspnea Chest pain Qualifiers: Chest pain type: other chest pain Qualified Code(s): R07.89 - Other chest pain Condition: Good
[2018-12-06 14:57] LABS: PLATELET COUNT 163 10^3/uL (150-400)
[2018-12-06] MEDS ORDERED: ONDANSETRON DISINTEGRATING 4 MG TAB PO PRN (17:13)
[2018-12-06] MEDS ORDERED: ONDANSETRON 4 MG/2 ML VIAL IVP PRN (17:13)
[2018-12-06] MEDS ORDERED: ACETAMINOPHEN 325 MG TAB PO PRN (17:13)
--- NOTE | 2018-12-06 17:38 | PDGENHP ---
<Meredith Hobson - Last Filed: 12/06/18 18:11> History and Physical - Chief Complaint Palpitations, exertional shortness of breath - History of Present Illness 68 y/o female w/ hx non-toxic multinodular goiter, OA, kidney stones, osteoarthritis and undiagnosed anxiety presents w/ palpitations and MOSLEY. She was seen last year w/ similar symptoms, treadmill stress test negative for any ischemia. She reports beginning in September of this year, she has had many stressors including a family member dying, her children's health declining, and more recently (November 2018) experiencing diarrhea/nausea and GI panel revealing e -coli infection. She initially did not want to take the recommended ciprofloxacin however she ended up taking azithromycin and completed the course last week. Apparently, for the last two months she has experienced occasional palpitations. The frequency has increased and she also has noticed she is short of breath walking up and down stairs and has chest pressure. Admittedly, she is anxious when this occurs and feels like her symptoms worsen. 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 Endorses anxiety (however refused Ativan that was offered by ED), chest pressure (resolved at rest), MOSLEY, palpitations. Denies nausea, vomiting, diarrhea, constipation, fever or chills. Initial EKG is SR, poor R progression, PVCs, no ischemia. Initial troponin negative. She is being admitted for further work-up and monitoring. History Information - Allergies/Home Medication List Allergies/Adverse Reactions: erythromycin base [Erythromycin Base] Allergy (Severe, Verified 09/24/17 21:02) aspirin [Aspirin] Allergy (Unknown, Verified 09/24/17 21:02) codeine [Codeine] Allergy (Unknown, Verified 09/24/17 21:02) iodine Allergy (Unknown, Verified 09/24/17 21:02) morphine [Morphine] Allergy (Unknown, Verified 09/24/17 21:02) Penicillins Allergy (Unknown, Verified 09/24/17 21:02) Sulfa (Sulfonamide Antibiotics) Allergy (Unknown, Verified 09/24/17 21:02) NSAIDS Allergy (Unknown, Uncoded 09/17/16 19:47) Home Medications: NK [No Known Home Meds] 12/06/18 [Last Taken Unknown] I have personally reviewed and updated: family history, medical history, social history, surgical history - Past Medical History no pertinent PMH - Surgical History Additional surgical history: Bilateral hip replacements (multiple years ago). Scope of knee x 2. Stem cell injection to knees (1 month ago) - Family History Positive for: cancer, myocardial infarction (Father. Pt reports he drank alcohol heavily and "got into drugs" and did not properly care for himself.) - Social History Smoking Status: Never smoked Alcohol Use: Sober Drug Use: None Additional social history: . 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 Review of Systems Review of Systems: ROS: 10pt was reviewed & negative except for what was stated in HPI & below Physical Exam Physical Exam: lab data and imaging were reviewed. Case discussed w/admitting physician, Dr. Cachorro Hanson. WBC: 6.87 RBC/H/H: 4.66/13.9/42.0 D-Dimer: 0.41 Na: 139 K/Magnesium: 3.5/2.0 BUN/Cr: 18/0.7 BNP:64 Trop:0.00 TSH: 0.984 EKG: see HPI CXR: no evidence of CHF, no infiltrate Temp Pulse Resp BP Pulse Ox 37.2 C 67 18 178/91 H 97 12/06/18 13:26 12/06/18 16:00 12/06/18 16:00 12/06/18 13:26 12/06/18 16:00 Constitutional: appears nourished, not in pain, other (Mildly to moderately anxious female, pleasant and cooperative) Eyes: PERRL, anicteric sclera, EOMI Ears, Nose, Mouth, Throat: moist mucous membranes, hearing normal, ears appear normal, no oral mucosal ulcers Cardiovascular: regular rate and rhythym, no murmur, rub, or gallop, No edema Peripheral Pulses: 2+: dorsalis-pedis (R) (Radial 2+), dorsalis-pedis (L) ( Radial 2+) Respiratory: no respiratory distress, no rales or rhonchi, clear to auscultation Gastrointestinal: normoactive bowel sounds, soft, non-tender abdomen, no palpable masses Genitourinary: no bladder fullness, no bladder tenderness Skin: warm, normal color, no rashes or abrasions, no fluctuance, no induration, No mottled Musculoskeletal: full muscle strength, no muscle tenderness, normal joint ROM, no joint effusions Neurologic: AAOx3, sensation intact bilaterally, CN II-XII Intact Psychiatric: interacting appropriately, not encephalopathic, thought process linear, anxious Lymph, Heme, Immunologic: no cervical LAD, no supraclavicular LAD Lab Data & Imaging Review 12/06/18 14:30 12/06/18 14:30 WBC 6.87 10^3/uL (3.80-9.50) 12/06/18 14:30 RBC 4.66 10^6/uL (4.18-5.33) 12/06/18 14:30 Hgb 13.9 g/dL (12.6-16.3) 12/06/18 14:30 Hct 42.1 % (38.0-47.0) 12/06/18 14:30 MCV 90.3 fL (81.5-99.8) 12/06/18 14:30 MCH 29.8 pg (27.9-34.1) 12/06/18 14:30 MCHC 33.0 g/dL (32.4-36.7) 12/06/18 14:30 RDW 12.7 % (11.5-15.2) 12/06/18 14:30 Plt Count 163 10^3/uL (150-400) 12/06/18 14:30 MPV 11.0 fL (8.7-11.7) 12/06/18 14:30 Neut % (Auto) 62.7 % (39.3-74.2) 12/06/18 14:30 Lymph % (Auto) 29.4 % (15.0-45.0) 12/06/18 14:30 [place] % (Auto) 6.7 % (4.5-13.0) 12/06/18 14:30 Eos % (Auto) 0.6 % (0.6-7.6) 12/06/18 14:30 Baso % (Auto) 0.3 % (0.3-1.7) 12/06/18 14:30 Nucleat RBC Rel Count 0.0 % (0.0-0.2) 12/06/18 14:30 Absolute Neuts (auto) 4.31 10^3/uL (1.70-6.50) 12/06/18 14:30 Absolute Lymphs (auto) 2.02 10^3/uL (1.00-3.00) 12/06/18 14:30 Absolute Monos (auto) 0.46 10^3/uL (0.30-0.80) 12/06/18 14:30 Absolute Eos (auto) 0.04 10^3/uL (0.03-0.40) 12/06/18 14:30 Absolute Basos (auto) 0.02 10^3/uL (0.02-0.10) 12/06/18 14:30 Absolute Nucleated RBC 0.00 10^3/uL (0-0.01) 12/06/18 14:30 Immature Gran % 0.3 % (0.0-1.1) 12/06/18 14:30 Immature Gran # 0.02 10^3/uL (0.00-0.10) 12/06/18 14:30 D-Dimer 0.41 ug/mLFEU (0.00-0.50) 12/06/18 14:30 Sodium 139 mEq/L (135-145) 12/06/18 14:30 Potassium 3.5 mEq/L (3.5-5.2) 12/06/18 14:30 Chloride 104 mEq/L (97-110) 12/06/18 14:30 Carbon Dioxide 26 mEq/l (22-31) 12/06/18 14:30 Anion Gap 9 mEq/L (6-14) 12/06/18 14:30 BUN 18 mg/dL (7-23) 12/06/18 14:30 Creatinine 0.7 mg/dL (0.6-1.0) 12/06/18 14:30 Estimated GFR > 60 12/06/18 14:30 Glucose 135 mg/dL (70-100) H 12/06/18 14:30 Calcium 9.7 mg/dL (8.5-10.4) 12/06/18 14:30 Magnesium 2.0 mg/dL (1.6-2.3) 12/06/18 14:35 POC Troponin I 0.00 ng/mL (0.00-0.08) 12/06/18 14:38 NT-Pro-B Natriuret Pep 64 pg/mL (0-125) 12/06/18 14:30 TSH 0.984 uIU/mL (0.465-4.680) 12/06/18 14:30 Assessment & Plan Plan: 68 y/o female w/ no pertinent cardiac hx presents w/ 2 months worth of palpitations and associated shortness of breath upon exertion. 1. Chest pain/palpitations: Heart score 2. Subjectively reports occasional palpitations increasing in frequency as well as associated MOSLEY and chest pressure however she has been anxious throughout the last couple of months. Treadmill stress test performed last year for very similar presentation reveal no ischemia and a few PVCs that resolved w/recovery. While evaluating the pt today, she would "talk myself down," from the anxiety and report no CP or palpitations. TSH normal. EKG, although abnormal, show no ischemia or ST elevation. -Admit for observation to PCU -Cont tele monitoring -First trop negative, will cycle Q6H x2 -Repeat EKG Q6H x 1, then PRN if symptomatic -I considered repeating stress test and/or echo but I do not think these tests are warranted at this time considering normal vitals, lab work, and her euvolemic status. 2. Mild hypokalemia: 3.5, on the low end of normal which could certainly cause palpitations. Considering her recent bout of GI e-coli infection and constant diarrhea at that time, it is not at all a surprise her K might be on the low end. Magnesium was 2.0. -Initiated K protocol -She will receive 40 meq PO K tonight 3. Anxiety: Within the last few months, she has experienced a family member dying, her children's health declining, and herself w/GI infection. She has been quite overwhelmed. She refuses any medications and performs mediation and other modalities to reduce her anxiety. I do think her anxiety is a component of her presenting symptoms. Diet: Regular Code: Full VTE ppx: SCDs Dispo: Admit to obs <Raudel Hanson - Last Filed: 12/06/18 19:07> History and Physical - History of Present Illness Review of Systems Review of Systems: Physical Exam Physical Exam: Temp Pulse Resp BP Pulse Ox 37.2 C 62 12 158/75 H 98 12/06/18 13:26 12/06/18 17:45 12/06/18 17:45 12/06/18 17:45 12/06/18 17:45 Lab Data & Imaging Review 12/06/18 14:30 12/06/18 14:30 WBC 6.87 10^3/uL (3.80-9.50) 12/06/18 14:30 RBC 4.66 10^6/uL (4.18-5.33) 12/06/18 14:30 Hgb 13.9 g/dL (12.6-16.3) 12/06/18 14:30 Hct 42.1 % (38.0-47.0) 12/06/18 14:30 MCV 90.3 fL (81.5-99.8) 12/06/18 14:30 MCH 29.8 pg (27.9-34.1) 12/06/18 14:30 MCHC 33.0 g/dL (32.4-36.7) 12/06/18 14:30 RDW 12.7 % (11.5-15.2) 12/06/18 14:30 Plt Count 163 10^3/uL (150-400) 12/06/18 14:30 MPV 11.0 fL (8.7-11.7) 12/06/18 14:30 Neut % (Auto) 62.7 % (39.3-74.2) 12/06/18 14:30 Lymph % (Auto) 29.4 % (15.0-45.0) 12/06/18 14:30 [place] % (Auto) 6.7 % (4.5-13.0) 12/06/18 14:30 Eos % (Auto) 0.6 % (0.6-7.6) 12/06/18 14:30 Baso % (Auto) 0.3 % (0.3-1.7) 12/06/18 14:30 Nucleat RBC Rel Count 0.0 % (0.0-0.2) 12/06/18 14:30 Absolute Neuts (auto) 4.31 10^3/uL (1.70-6.50) 12/06/18 14:30 Absolute Lymphs (auto) 2.02 10^3/uL (1.00-3.00) 12/06/18 14:30 Absolute Monos (auto) 0.46 10^3/uL (0.30-0.80) 12/06/18 14:30 Absolute Eos (auto) 0.04 10^3/uL (0.03-0.40) 12/06/18 14:30 Absolute Basos (auto) 0.02 10^3/uL (0.02-0.10) 12/06/18 14:30 Absolute Nucleated RBC 0.00 10^3/uL (0-0.01) 12/06/18 14:30 Immature Gran % 0.3 % (0.0-1.1) 12/06/18 14:30 Immature Gran # 0.02 10^3/uL (0.00-0.10) 12/06/18 14:30 D-Dimer 0.41 ug/mLFEU (0.00-0.50) 12/06/18 14:30 Sodium 139 mEq/L (135-145) 12/06/18 14:30 Potassium 3.5 mEq/L (3.5-5.2) 12/06/18 14:30 Chloride 104 mEq/L (97-110) 12/06/18 14:30 Carbon Dioxide 26 mEq/l (22-31) 12/06/18 14:30 Anion Gap 9 mEq/L (6-14) 12/06/18 14:30 BUN 18 mg/dL (7-23) 12/06/18 14:30 Creatinine 0.7 mg/dL (0.6-1.0) 12/06/18 14:30 Estimated GFR > 60 12/06/18 14:30 Glucose 135 mg/dL (70-100) H 12/06/18 14:30 Calcium 9.7 mg/dL (8.5-10.4) 12/06/18 14:30 Magnesium 2.0 mg/dL (1.6-2.3) 12/06/18 14:35 POC Troponin I 0.00 ng/mL (0.00-0.08) 12/06/18 14:38 NT-Pro-B Natriuret Pep 64 pg/mL (0-125) 12/06/18 14:30 TSH 0.984 uIU/mL (0.465-4.680) 12/06/18 14:30 Assessment & Plan Plan: I agree with the evaluation, assessment and plan as above by Hanh Hobson.
[2018-12-06] MEDS ORDERED: PROTOCOL POTASSIUM 1 DOSE MISC PRN (17:51)
[2018-12-06] MEDS ORDERED: POTASSIUM CL 20 MEQ PKT PO ONE ×2 (17:52→20:45)
--- NOTE | 2018-12-06 19:06 | HOSPPROG ---
Hospitalist Progress Note Assessment/Plan: I have reviewed the patient's presentation in detail with Hanh Hobson nurse practitioner, and have also examined and interviewed the patient myself in the ER [facility]. Her examination is entirely unremarkable at this time her symptoms are resolved. Her EKG shows PACs with left bundle branch morphology her sinus driven beats are normal and there is no evidence of ischemia or injury and troponin is normal Her presenting symptoms primarily palpitations leading to quite a bit of anxiety. She has had previous evaluation for this without findings in the symptom really has not changed. She did have some chest discomfort which is very atypical in its nature and has previous assessment showing no concerning findings. At this time my concern for serious cardiac event or risk of more serious cardiac event is very low. DIAGNOSES: * Palpitations, symptomatic PACs with left bundle branch block morphology; Holter monitor 1 year ago showing the same * Absence of any signs of ischemia * Absence of heart failure * Atypical chest pain that does not sound like angina, previous treadmill stress test and echocardiogram 1 year ago unrevealing * Initial troponin normal * Increased stressors at home PLANS: * Observe on cafeteria monitor * Repeat troponin * As long she remains stable would refer her for outpatient assessment Cardiology Clinic Notably she did lose a family member just recently and 1 of her children has been ill, and she admits that she has not really allowed herself to engage in a grieving process. Strongly encouraged her to allow this to happen and we can set her up with help as needed. Objective: Vital Signs Temp Pulse Resp BP Pulse Ox 37.2 C 62 12 158/75 H 98 12/06/18 13:26 12/06/18 17:45 12/06/18 17:45 12/06/18 17:45 12/06/18 17:45 ICD10 Worksheet Patient Problems: Problems Problem Status Onset Chest pain Acute Exertional dyspnea Acute
--- NOTE | 2018-12-06 21:41 | CPEKG ---
Test Reason : OPEN Blood Pressure : / mmHG Vent. Rate : 081 BPM Atrial Rate : 079 BPM P-R Int : 164 ms QRS Dur : 082 ms QT Int : 361 ms P-R-T Axes : 066 -06 051 degrees QTc Int : 419 ms Sinus rhythm Ventricular trigeminy Anterior infarct, old Confirmed by Gloria Thomas ([id number]) on 12/06/2018 9:40:47 PM Referred By: Gloria Thomas Confirmed By:Gloria Thomas
[2018-12-06] MEDS ORDERED: POTASSIUM CL 10 MEQ TAB PO ONE (23:32)
[2018-12-07 04:41] LABS: PLATELET COUNT 147 10^3/uL (150-400)
[2018-12-07] MEDS ORDERED: POTASSIUM CL 10 MEQ TAB PO ONE (08:40)
[2018-12-07 11:14] VITALS: BP 139/87
--- NOTE | 2018-12-07 12:14 | ASDISCHSUM ---
Discharge Information Plan Status:Home with No Needs Medically Cleared to Leave:12/07/2018 Discharge Date:12/07/2018 12:02 PM CM D/C Disposition:Home, Routine, Self-Care ADT D/C Disposition:Home, Routine, Self-Care Projected Discharge Date:12/07/2018 12:02 PM Transportation at D/C: Discharge Delay Reason: Follow-Up Date:12/07/2018 12:02 PM Discharge Slot: Final Diagnosis: Placement Information Patient Contact Information Contact Name:ANAI Relationship: Address:[address] [facility] Phone: City:[place] Alternate Phone: [facility]/Zip Code:[place] [address] Email: Financial Information Financial Class:HMO and PPO Plans Primary Plan Desc:[facility] Primary Plan Number:[id number] Secondary Plan Desc: Secondary Plan Number: Assessment Information LACE LACE Length of stay for Answers: Less than 1 day current admission Acuity / Level of Answers: No Care: Did the patient have an inpatient admission? # of Emergency department Answers: 1-2 visits in the last 6 months Score: 1 Date Signed: 12/07/2018 12:14 PM Electronically Signed By:Love Moreno RN Intervention Information
--- NOTE | 2018-12-07 13:24 | PDDCSUM ---
Discharge Summary Discharge Summary: DISCHARGE DIAGNOSES: * Heart palpitation * Subjective dyspnea without clinical findings of hypoxemia or respiratory compromise * Anxiety, significant stress * Incomplete grieving process HOSPITAL COURSE SUMMARY: This patient presented the hospital with palpitations (individual skipped beats ) and a sense of dyspnea. There may have been some chest discomfort but the history around this is unclear as I obtain the story from her. The palpitations were going on and off for perhaps 2 weeks prior to coming here. Before onset of these palpitations she did have a gastrointestinal illness that was diagnosed as E coli and she had been treated with some antibiotics. In the ER the patient did have some intermittent palpitations which are felt as an individual skip beat and these correlated with PACs seen on youth nutritional monitor. The patient felt very concerned that there is a serous illness and she was observed overnight. Her vital signs were all normal and her oxygenation was normal. Physical examination was remarkable only for intermittent skipped heartbeat. Cardiac pulmonary vascular and other exams are all unremarkable. Cardiac troponins and other laboratory studies were unremarkable. Chest x-ray was normal by my review. 12 lead EKG I reviewed showed a sinus rhythm with intermittent PACs with aberrant conduction of a left bundle branch block nature. There was nothing to suggest ischemia or injury or other cardiac abnormalities. She was observed on youth nutritional monitor overnight and had intermittent PACs but no other arrhythmia. Vital signs remained stable. At this time she is up walking around in the hallway, has vital signs, is eating and drinking well, no respiratory issues are observed. The patient had a very similar episode 14 months ago and was admitted here overnight at that time. Again at that time PACs were noted and cardiopulmonary evaluations were otherwise unremarkable. These included treadmill stress testing at that time. She also had an outpatient heart monitor which apparently showed PACs at the [facility]. At this point is not felt that she has any concerning cardiac issues other than PACs. The patient is extremely concerned about her heart health and would like assessment with the event planning intern. I have given her information to make appointment to visit with Cardiology at [facility] to review her issues. The patient does have a vague sense of weakness which may be a result of her recent E coli infection. At this time she felt stable for discharge. I have recommended that she follow up with Dr. Edyta Flores in 1 week. Also of note the patient did lose a family member to an unexpected in the past couple of months, and she states that she has not effectively engaged in grieving process. I recommended that she take measures to more fully engaging grieving and take care of that part of her picture as well. PENDING TEST RESULTS: None MEDICATION CHANGES: None FOLLOW-UP PLAN: She will see Dr. Flores in 1-2 weeks She desires a cardiology consultation so I have referred her to contact [facility] for evaluation Greater than 35 minutes bedside and care coordination time today
--- NOTE | 2018-12-08 06:39 | CPEKG ---
Test Reason : OPEN Blood Pressure : / mmHG Vent. Rate : 061 BPM Atrial Rate : 061 BPM P-R Int : 177 ms QRS Dur : 087 ms QT Int : 432 ms P-R-T Axes : 071 026 058 degrees QTc Int : 435 ms Sinus rhythm Low voltage, precordial leads Confirmed by Los Law ([id number]) on 12/08/2018 6:39:37 AM Referred By: Raudel Hanson Confirmed By:Los Law
== END 2018-12-07 12:02 | disposition home or self-care (01) ==
LOC: F2W 19:25
PROVIDERS: ADMIT Internal Medicine; ATTEND Internal Medicine
DX: R00.2 Palpitations (principal); R06.00 Dyspnea, unspecified; F41.9 Anxiety disorder, unspecified; F43.20 Adjustment disorder, unspecified; E87.6 Hypokalemia
CPT/HCPCS: 71046; 93005; 99285; G0378; 84484-ER